=== PATIENT | female | born 1945 | race American Indian/Alaskan Native ===

== ENCOUNTER 2018-04-05 11:45 | Outpatient (CLI) | payer MEDICARE ==
[2018-04-05 12:14] LABS: Blood Urea Nitrogen 22 mg/dL (7-17)
--- NOTE | 2018-04-09 09:31 | Magnetic Resonance Report ---
MR scan of the cranium was performed with and without contrast. Pulse sequences included: 1. T1 weighted sagittal and axial images without contrast and T1 axial and coronal images with contrast 2. T2 weighted axial and coronal images 3. FLAIR axial images 4. Diffusion-weighted axial images 5. Apparent diffusion coefficient images Views of the posterior fossa showed a normal craniocervical junction. Cerebellar pontine angles were normal with normal seventh-eighth nerve complexes. Brainstem and cerebellum were normal. The ventricular system showed no dilatation or distortion. Images of the hemispheres showed numerous white matter lesions in the periventricular white matter some consistent with Mcclendon's fingers. Some lesions were present at the pierre white junction. Numerous black holes were seen. Sinuses showed a mucus retention cyst in the left sphenoid sinus. Pituitary, flow voids in the campo of Schwarz, orbits, and basal ganglia were normal. There are no abnormal areas of enhancement with contrast. Impression: Abnormal MR scan of the cranium with and without contrast a. left sphenoid sinus mucus retention cyst b. numerous white matter lesions and black holes consistent with the diagnosis of multiple sclerosis this study was compared with the previous study from 2015 and little change is appreciated
== END 2018-04-05 11:46 | disposition home or self-care (01) ==
LOC: MRI 11:45
PROVIDERS: ATTEND Specialist
DX: J01.30 Acute sphenoidal sinusitis, unspecified (principal); J34.1 Cyst and mucocele of nose and nasal sinus; R79.89 Other specified abnormal findings of blood chemistry
CPT/HCPCS: 36415; 70553; 82565; 82962; 84520; A9577